=== PATIENT | male | born 1960 | race Caucasian/White ===

== ENCOUNTER → 2019-04-28 20:37 | Outpatient (CLI) | payer MEDICAID | END | disposition home or self-care (01) | LOC: D.LABREF 20:37 | PROVIDERS: ATTEND Orthopaedic Surgery | DX: M17.11 Unilateral primary osteoarthritis, right knee (principal) ==

== ENCOUNTER 2019-05-06 17:20 | Inpatient (IN) | payer MEDICAID ==
[~2019-05-06] VITALS: Ht 175.3 cm; Wt 109.1 kg
[2019-05-12 11:16] LABS: BASOPHILS 0.1 % (0-2); EOSINOPHILS 1.3 % (0-7); HEMATOCRIT 42.8 % (42.0-54.0); HEMOGLOBIN 14.5 g/dL (13.5-17.5); IMMATURE GRANULOCYTES 0.1 % (0-5); LYMPHOCYTES 41.2 % (15-50); MCH 31.5 pg (26.0-34.0); MCHC 33.9 g/dL (31.0-37.0); MONOCYTES 7.6 % (2-11); NEUTROPHILS 49.7 % (40-80); PLATELET COUNT 187 10x3/uL (130-400); RDW 13.5 % (11.5-14.5); WBC 6.9 10x3/uL (4.8-10.8)
[2019-05-12 11:17] LABS: APPEARANCE CLEAR (CLEAR); BILIRUBIN NEGATIVE (NEGATIVE); COLOR YELLOW (YELLOW); GLUCOSE NEGATIVE (NEGATIVE); KETONE NEGATIVE (NEGATIVE); NITRITE NEGATIVE (NEGATIVE); PROTEIN NEGATIVE (NEGATIVE); SPECIFIC GRAVITY 1.015 (1.005-1.020); UROBILINOGEN NORMAL (NORMAL)
[2019-05-12 11:21] LABS: APTT 26.3 SECONDS (22.8-39.4); INR 0.91 (0.85-1.17); PROTIME 12.2 SECONDS (11.6-15.0)
[2019-05-12 11:23] LABS: ANION GAP 11.2 mmol/L (8-16); CALCIUM 8.8 mg/dL (8.5-10.1); CARBON DIOXIDE 31.2 mmol/L (21.0-32.0); CREATININE - SERUM 1.2 mg/dL (0.6-1.3); POTASSIUM - SERUM 4.4 mmol/L (3.5-5.1)
[2019-05-17] VITALS (8 sets, daily range): BP systolic 116–149; BP diastolic 60–98; Ht 175.3 cm; Wt 109.1 kg
--- NOTE | 2019-05-17 14:31 | NUR ---
PREPPED WITH HIBACLENS AND ALCOHOL PRIOR TO CHLORAPREP. STERILE GOWNED AND GLOVED AND PREPPED WITH CHLORAPREP. THROUGH TRAFFIC KEPT TO MINIMUM. VANC AND TOBRA ADMINISTERED TO BACK FIELD STERILE GLOVED.
[2019-05-18 00:30] VITALS: BP 127/80
[2019-05-18 04:15] VITALS: BP 103/56
[2019-05-18 06:00] LABS: HEMATOCRIT 34.9 % (42.0-54.0); HEMOGLOBIN 11.5 g/dL (13.5-17.5); MCH 30.7 pg (26.0-34.0); MCV 93.3 fL (80.0-100.0); MEAN PLATELET VOLUME 10.7 fL (7.4-10.4); RBC 3.74 10x6/uL (4.20-6.10); RDW 13.5 % (11.5-14.5); WBC 12.8 10x3/uL (4.8-10.8)
--- NOTE | 2019-05-18 07:31 | NUR ---
I have reviewed this patient and I concur with the Shift Assessment completed by the Licensed Practical Nurse today this shift.
[2019-05-18 07:53] VITALS: BP 144/80
--- NOTE | 2019-05-18 08:12 | NUR ---
RESTING IN BED, NO DISTRESS NOTED, STATES THAT BLOCK IS STILL IN EFFECT, CPM IN PLACE, RUSSELL WARP TO RIGHT KNEE DRY
[2019-05-18 11:31] VITALS: BP 140/70
[2019-05-18 16:44] VITALS: BP 132/70
--- NOTE | 2019-05-18 18:19 | NUR ---
RESTING IN BED, NO DISTRESS NOTED, MEDICATED X1 TODAY FOR PAIN, DRESSING TO R KNEE DRY, DRY BLOOD NOTED THIS AM, NO NEW BLEEDING TODAY
[2019-05-18 19:30] VITALS: BP 137/80
--- NOTE | 2019-05-18 22:53 | NUR ---
REC'D. CHGE OF SHIFT WALKING ROUNDS IN CPM ACEWRAP DRSG. DRY AND INTACT TO RIGHT KNEE.FOOT PINK AND WARM PEDAL PULSE PRESENT WIGGLES TOES AND DORSIFLEXES STATES STILL LITTLE NUMB.DENIES CALF PAIN OR TENDERNESS ON DORSIFLEXION. WILL CONTINUE TO MONITOR FOR ANY CHGES. IN NEUROVASCULAR STATUS AND FOLLOW CURRENT PLAN OF CARE,
[2019-05-19 00:30] VITALS: BP 118/69
[2019-05-19 04:50] VITALS: BP 120/66
[2019-05-19 05:13] LABS: HEMATOCRIT 32.4 % (42.0-54.0); HEMOGLOBIN 10.7 g/dL (13.5-17.5); MCH 30.9 pg (26.0-34.0); MCV 93.6 fL (80.0-100.0); MEAN PLATELET VOLUME 10.7 fL (7.4-10.4); RBC 3.46 10x6/uL (4.20-6.10)
[2019-05-19 05:25] LABS: WBC 8.8 10x3/uL (4.8-10.8)
--- NOTE | 2019-05-19 06:58 | NUR ---
I have reviewed this patient and I concur with the Shift Assessment completed by the Licensed Practical Nurse today this shift.
[2019-05-19 08:20] VITALS: BP 130/67
[2019-05-19 17:53] VITALS: BP 129/66
[2019-05-19 18:08] VITALS: BP 117/63
--- NOTE | 2019-05-19 21:00 | NUR ---
A&O X 4. SUPINE IN BED. CPM NOT FUNCTIONING PROPERLY. PT STATES IT STOPPED WORKING. UNABLE TO MAKE WORK, CPM REMOVED. PT REPORTS PAIN OF 3-4/10. NO FURTHER NEEDS VOICED, WILL CONTINUE TO MONITOR.
[2019-05-19 21:05] VITALS: BP 172/89
[2019-05-20 01:49] VITALS: BP 160/70
--- NOTE | 2019-05-20 04:07 | NUR ---
I have reviewed this patient and I concur with the Shift Assessment completed by the Licensed Practical Nurse today this shift.
[2019-05-20 05:53] VITALS: BP 137/76
--- NOTE | 2019-05-20 08:00 | NUR ---
AWAKE AND ALERT. ORIENTED X3. NO C/O AT THIS TIME. CPM IN PLACE TO RIGHT KNEE. LUNGS ARE CLEAR BILATERALLY, NO COUGH NOTED. INSTRUCTED IN USE OF IS WA WITH RETURN DEMONSTRATION. SKIN IS INTACT WITHOUT REDNESS EXCEPT INCISION TO RIGHT KNEE WHICH HAS A DRY INTACT DRESSING IN PLACE. SL TO LEFT HAND PATENT WITHOUT REDNESS AT INSERTION SITE. FAMILY AT BEDSIDE. DENIES NEEDS.
[2019-05-20] MEDS ORDERED: PERCOCET 10-321 EAC1 PO (08:07)
[2019-05-20] MEDS ORDERED: ELIQUIS2.5 MG PO (08:08)
--- NOTE | 2019-05-20 09:51 | MORECARE ---
CASE MANAGEMENT DISCHARGE SUMMARY PATIENT: JC HUDDLESTON DOYLE UNIT: [id number] ADM DATE: 05/17/19 AGE: 59 : 60 SEX: M ROOM/BED: D.2210 AUTHOR: YOSSI KEEN PHYSICIAN: REFERRING PHYSICIAN: STEPH BUTLER MD DATE OF SERVICE: 05/20/19 Discharge Plan Patient Name: JC HUDDLESTON [facility] [facility] 1960 Planned Disposition: Home or Self Care Anticipated Discharge Date: Discharge Date: Expected LOS: Initial Reviewer: [email or web address] Initial Review Date: 05/17/2019 Generated: 05/20/19 10:51 am Patient Name: JC HUDDLESTON Page 97766 at 0951 All edits/amendments must be made on the electronic document DICTATION DATE: 05/20/19950 COOKEE: JERRY 05/20/19950 RPT#: [id number] DC DATE: STATUS: ADM IN [facility] [address] [place] [address] END OF REPORT
--- NOTE | 2019-05-20 10:00 | MORECARE ---
CASE MANAGEMENT DISCHARGE SUMMARY PATIENT: JC HUDDLESTON UNIT: [id number] ADM DATE: 05/17/19 AGE: 59 : 60 SEX: M ROOM/BED: D.2210 AUTHOR: OSMANI,DOC PHYSICIAN: REFERRING PHYSICIAN: STEPH BUTLER MD DATE OF SERVICE: 05/20/19 Discharge Plan Patient Name: JC HUDDLESTON Facility: [facility]:[place] : 1960 Planned Disposition: Home or Self Care Anticipated Discharge Date: Discharge Date: Expected LOS: Initial Reviewer: [email or web address] Initial Review Date: 05/17/2019 Generated: 05/20/19 10:59 am Comments DCP- Discharge Planning Updated by [email or web address]: Lucrecia Montana on 05/20/19 8:[address] Patient Name: JC HUDDLESTON Admission Status: Elective Accout number: [id number] Admission Date: 05-17-2019 : 1960 Admission Diagnosis: Attending: STEPH BUTLER Current LOS: 3 Anticipated DC Date: Planned Disposition: Home or Self Care [place] Insurance: [place] PR[employer]IONS [place] Discharge Planning Comments: CM met with patient to complete initial dc planning assessment. CM educated patient on the CM role and verbal consent given by patient to complete assessment. Patient lives at home with his family where he is independent with his care. At discharge patient plans to return home and feels this is a safe discharge. CM discussed availability of home health, rehab services, and medical equipment. He would like to do his OP PT at [facility]. I have called to set up his appointment and they will call me back. He has a walker, BSC and CPM at home that was set up by Dr Butler's office. Patient denied known discharge needs at this time. CM will continue to follow and will assist as needed with dc plans/needs. Quality Compliance Consultant: Lucrecia Montana DCPIA - Discharge Planning Initial Assessment Updated by [email or web address]: Lucrecia Montana on 05/20/19 9:52 am * Is the patient Alert and Oriented? Yes * How many steps to enter\exit or inside your home? * PCP DORI * Pharmacy [facility] [address] * Preadmission Environment Home with Family * ADLs Independent * Equipment Bedside Commode Walker * Other Equipment CPM * List name and contact numbers for known caregivers / representatives who currently or will assist patient after discharge: JEFF FORTUNE [phone] * Verbal permission to speak to the caregivers and representatives has been obtained from the patient. N/A * Community resources currently utilized None * Additional services required to return to the preadmission environment? Yes * Can the patient safely return to the preadmission environment? Yes * Has this patient been hospitalized within the prior 30 days at any hospital? No Last DP export: 05/20/19 8:51 a Patient Name: JC HUDDLESTON Page 26746 at 1000 All edits/amendments must be made on the electronic document DICTATION DATE: 05/20/19958 EXECUTIVE RELATIONS SPECIALIST: JERRY 05/20/19958 RPT#: [id number] DC DATE: STATUS: ADM IN [facility] [address] [place] [address] END OF REPORT
--- NOTE | 2019-05-20 10:00 | NUR ---
TEDS REMOVED AT THIS TIME.
[2019-05-20 10:06] VITALS: BP 159/63
--- NOTE | 2019-05-20 11:37 | MORECARE ---
CASE MANAGEMENT DISCHARGE SUMMARY PATIENT: JC HUDDLESTON UNIT: [id number] ADM DATE: 05/17/19 AGE: 59 : 60 SEX: M ROOM/BED: D.2210 AUTHOR: YOSSI KEEN PHYSICIAN: REFERRING PHYSICIAN: STEPH BUTLER MD DATE OF SERVICE: 05/20/19 Discharge Plan Patient Name: JC HUDDLESTON Facility: [facility]:[place] : 1960 Planned Disposition: Home or Self Care Anticipated Discharge Date: Discharge Date: Expected LOS: Initial Reviewer: [email or web address] Initial Review Date: 05/17/2019 Generated: 05/20/19 12:36 pm Comments DCP- Discharge Planning Updated by [id number]: Lucrecia Montana on 05/20/19 10:[address] OP PT APPOINTMENT MADE FOR Friday05/24/19 AT 9:30 FOR HIM TO ARRIVE AT 9:15 I SPOKE WITH PAYTON DCP- Discharge Planning Updated by [email or web address]: Lucrecia Montana on 05/20/19 8:[address] Patient Name: JC HUDDLESTON Admission Status: Elective Accout number: [id number] Admission Date: 05-17-2019 : 1960 Admission Diagnosis: Attending: STEPH BUTLER Current LOS: 3 Anticipated DC Date: Planned Disposition: Home or Self Care [place] Insurance: [place] PR[employer]IONS [place] Discharge Planning Comments: CM met with patient to complete initial dc planning assessment. CM educated patient on the CM role and verbal consent given by patient to complete assessment. Patient lives at home with his family where he is independent with his care. At discharge patient plans to return home and feels this is a safe discharge. CM discussed availability of home health, rehab services, and medical equipment. He would like to do his OP PT at [facility]. I have called to set up his appointment and they will call me back. He has a walker, BSC and CPM at home that was set up by Dr Butler's office. Patient denied known discharge needs at this time. CM will continue to follow and will assist as needed with dc plans/needs. Supervisor Of Officials: Lucrecia Montana DCPIA - Discharge Planning Initial Assessment Updated by [email or web address]: Lucrecia Montana on 05/20/19 9:52 am * Is the patient Alert and Oriented? Yes * How many steps to enter\exit or inside your home? * PCP DORI * Pharmacy [facility] * Preadmission Environment Home with Family * ADLs Independent * Equipment Bedside Commode Walker * Other Equipment CPM * List name and contact numbers for known caregivers / representatives who currently or will assist patient after discharge: JEFF FORTUNE [phone] * Verbal permission to speak to the caregivers and representatives has been obtained from the patient. N/A * Community resources currently utilized None * Additional services required to return to the preadmission environment? Yes * Can the patient safely return to the preadmission environment? Yes * Has this patient been hospitalized within the prior 30 days at any hospital? No Last DP export: 05/20/19 9:00 a Patient Name: JC HUDDLESTON Page 81047 at 1137 All edits/amendments must be made on the electronic document DICTATION DATE: 05/20/19 1136 STILL TENDER: JERRY 05/20/19 1136 RPT#: [id number] DC DATE: STATUS: ADM IN [facility] [address] [place] [address] END OF REPORT
--- NOTE | 2019-05-20 11:49 | OP ---
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 PROCEDURE: Revision total knee arthroplasty. SURGEON: Steph Butler MD HEALTH AND SAFETY COORDINATOR: Rafi Silva APN INTRAOPERATIVE COMPLICATIONS: None. SUMMARY OF PATHOLOGIC FINDINGS: The patient had severe arthritis with near complete overgrowth of the previously placed PFJ. The patellar component, which was in excellent condition and did not require revision. IMPLANTS USED: [place] triathlon total knee arthroplasty, press fit size 6 distal femur, size 6 tibial baseplate, and a size 13 polyethylene insert, again, press fit. ESTIMATED BLOOD LOSS: 250 cc. OPERATIVE SUMMARY IN DETAIL: After obtaining the appropriate preoperative orthopedic surgery consent as well as anesthetic consultation, evaluation, and clearance, the patient was brought to the operating room and placed on the operating table in supine position. After adequate general laryngeal mask airway was administered, tourniquet was placed on the proximal aspect of the right lower extremity. Right lower extremity was then prepped and draped in routine sterile fashion. At this point, the appropriate unique patient identifiers and timeout was taken and agreed upon by all in the OR. Leg was then elevated and exsanguinated, tourniquet was inflated to 350 mmHg. Routine midline incision was taken down. Paramedian arthrotomy was then utilized. Patella was everted and examined. Patellar component seemed to be in excellent overall condition. At this point, the patellofemoral joint arthroplasty was removed with no bone loss. Distal intramedullary guide hole was created for distal intramedullary guidance. Distal femoral cut was made. Attention was then turned to the proximal tibia after the appropriate resection of all soft tissues. Proximal tibia was completely exposed and intramedullary guide cutting was then utilized. The patient had severe varus arthritis, but I do think it was correctable without substantial need for augmentation. Trials corresponding to the above-mentioned implants were put into place and taken through range of motion and it was felt that the 13 was the most appropriate. A very small medial collateral release was utilized for balancing and again, the stable seem to be balanced in flexion and extension with good patellar tracking. Trial components were removed. The knee cavity was irrigated with pulsatile lavage. Bone ends were then dried and the final components were press fit into place. The knee was taken through range of motion and found to be stable in all planes. Having completed this, a gram of vancomycin and a gram of tobramycin was placed OPERATIVE REPORT [id number] JC HUDDLESTON in the knee. The paramedian arthrotomy was closed with #2 Ethibond by Rafi Silva including skin closure #1 Vicryl, 2-0 Vicryl and skin kirill. Sterile dressings were applied. Tourniquet was deflated. The patient was awakened and taken to recovery room in stable condition. All final needle and sponge counts were correct. TRANSINT:[id number] Voice Confirmation ID: [id number] DOCUMENT ID: [id number] CARRIE LORENZO, STEPH ESTEBAN at 1149 CC: [id number] DICTATION DATE: 05/18/19 0855 FIRST COOK: 05/18/19 1135 ADM IN [facility] [address] [place] [id number]
[2019-05-20 13:42] VITALS: BP 134/66
--- NOTE | 2019-05-20 15:38 | NUR ---
DISCHARGED TO HOME AMBULATORY WITH FAMILY. DISCHARGE INSTRUCTIONS GIVEN BOTH VERBALLY AND WRITTEN. ALL QUESTIONS ANSWERED. PATIENT VERBALIZED UNDERSTANDING OF SAME. SL TO LEFT WRIST D/C WITH CATHETER INTACT. NEEDED PRESCRIPTIONS ESCRIBED TO PHARMACY OF CHOICE. ALL BELONGINGS WITH PATIENT.
--- NOTE | 2019-05-22 15:50 | MORECARE ---
CASE MANAGEMENT DISCHARGE SUMMARY PATIENT: JC HUDDLESTON UNIT: [id number] ADM DATE: 05/17/19 AGE: 59 : 60 SEX: M ROOM/BED: D.2210 AUTHOR: YOSSI KEEN PHYSICIAN: REFERRING PHYSICIAN: STEPH BUTLER MD DATE OF SERVICE: 05/22/19 Discharge Plan Patient Name: JC HUDDLESTON Facility: [facility]:[place] : 1960 Planned Disposition: Home or Self Care Anticipated Discharge Date: Discharge Date: 05/20/2019 Expected LOS: Initial Reviewer: [email or web address] Initial Review Date: 05/17/2019 Generated: 05/22/19 4:50 pm Comments DCP- Discharge Planning Updated by [email or web address]: Lucrecia Montana on 05/20/19 10:[address] OP PT APPOINTMENT MADE FOR Friday05/24/19 AT 9:30 FOR HIM TO ARRIVE AT 9:15 I SPOKE WITH PAYTON DCP- Discharge Planning Updated by [email or web address]: Lucrecia Montana on 05/20/19 8:[address] Patient Name: JC HUDDLESTON Admission Status: Elective Accout number: [id number] Admission Date: 05-17-2019 : 1960 Admission Diagnosis: Attending: STEPH BUTLER Current LOS: 3 Anticipated DC Date: Planned Disposition: Home or Self Care Primary Insurance: [place] PRIVATE OPTIONS DEB[place] Discharge Planning Comments: CM met with patient to complete initial dc planning assessment. CM educated patient on the CM role and verbal consent given by patient to complete assessment. Patient lives at home with his family where he is independent with his care. At discharge patient plans to return home and feels this is a safe discharge. CM discussed availability of home health, rehab services, and medical equipment. He would like to do his OP PT at [facility]. I have called to set up his appointment and they will call me back. He has a walker, BSC and CPM at home that was set up by Dr Butler's office. Patient denied known discharge needs at this time. CM will continue to follow and will assist as needed with dc plans/needs. Camp Advisor: Lucrecia Montana DCPIA - Discharge Planning Initial Assessment Updated by [email or web address]: Lucrecia Montana on 05/20/19 9:52 am * Is the patient Alert and Oriented? Yes * How many steps to enter\exit or inside your home? * PCP DORI * Pharmacy [facility] * Preadmission Environment Home with Family * ADLs Independent * Equipment Bedside Commode Walker * Other Equipment CPM * List name and contact numbers for known caregivers / representatives who currently or will assist patient after discharge: JEFF FORTUNE [phone] * Verbal permission to speak to the caregivers and representatives has been obtained from the patient. N/A * Community resources currently utilized None * Additional services required to return to the preadmission environment? Yes * Can the patient safely return to the preadmission environment? Yes * Has this patient been hospitalized within the prior 30 days at any hospital? No Last DP export: 05/20/19 10:37 a Patient Name: JC HUDDLESTON Page 24180 at 1550 All edits/amendments must be made on the electronic document DICTATION DATE: 05/22/19 1550 DATA SECURITY CONSULTANT: JERRY 05/22/19 1550 RPT#: [id number] DC DATE:05/20/19 STATUS: DIS IN [facility] [address] [place] [address] END OF REPORT
== END 2019-05-20 15:40 | disposition home or self-care (01) | DRG 468 ==
LOC: D.SDCHOLD 05-12 10:00 → D.MS 05-17 09:50 → D.SDCHOLD 05-17 09:50 → D.MS 05-17 15:48
PROVIDERS: ADMIT Orthopaedic Surgery; ATTEND Orthopaedic Surgery
PROC: 0SPC0NZ Removal of Patellofemoral Synthetic Substitute from Right Knee Joint, Open Approach (ICD-10-PCS; 2019-05-17)
PROC: 0SRC0J9 Replacement of Right Knee Joint with Synthetic Substitute, Cemented, Open Approach (ICD-10-PCS; principal; 2019-05-17 11:45)
DX: T84.092A Other mechanical complication of internal right knee prosthesis, initial encounter (principal); M17.11 Unilateral primary osteoarthritis, right knee

== ENCOUNTER → 2019-06-30 22:04 | Outpatient (CLI) | payer MEDICAID ==
[2019-05-17 17:55] VITALS: BMI 35.5
[~2019-06-30 22:04] MED LIST: ELIQUIS2.5 MG PO; PERCOCET 10-321 EAC1 PO
== END | disposition home or self-care (01) ==
LOC: D.LABREF 22:04
PROVIDERS: ATTEND Orthopaedic Surgery
DX: M25.562 Pain in left knee (principal)

== ENCOUNTER 2019-07-26 13:47 | Inpatient (IN) | payer MEDICAID ==
[~2019-07-26] VITALS: Ht 175.3 cm; Wt 112.7 kg
--- NOTE | ~2019-07-26 | OP ---
PATIENT NAME: JC HUDDLESTON MEDICAL RECORD: [id number] :60 LOCATION:D.M3 D.1208 ADMISSION DATE:08/30/19 SURGEON: STEPH BUTLER MD DATE OF OPERATION: 08/30/2019 PREOPERATIVE DIAGNOSES: Severe degenerative arthritis of the left knee with previous patellofemoral joint arthroplasty. POSTOPERATIVE DIAGNOSES: Severe degenerative arthritis of the left knee with previous patellofemoral joint arthroplasty. PROCEDURE: Revision of left total knee arthroplasty. SURGEON: Steph Butler MD SAND CARRIER: LAURENCE Garcia INTRAOPERATIVE COMPLICATIONS: None. SUMMARY OF PATHOLOGIC FINDINGS: While the patient had had previous patellofemoral arthroplasty, the remainder of the joint had gone into severe degenerative changes. The patient's previously placed patella was in good condition. It was not replaced due to fear of fracture and it did not have substantial polyethylene wear. The main problem was the patient had severe medial and lateral joint line disease. IMPLANTS USED: [place] triathlon total knee arthroplasty system, size 6 distal femur, 6 tibial baseplate, 11-mm polyethylene insert. OPERATIVE SUMMARY IN DETAIL: After obtaining the appropriate preoperative orthopedic surgery consent as well as anesthetic consultation, evaluation and clearance, the patient was brought to the operating room and placed on the operating table in a supine position. After adequate general laryngeal mask airway was administered, the patient's left lower extremity was prepped and draped in routine sterile fashion. The leg was elevated, irrigated, tourniquet inflated to 350 mmHg. At this point, the appropriate unique patient identifiers were agreed upon by all for a timeout. Routine midline incision was taken down for paramedian arthrotomy. The patella was then subluxed laterally as it was not going to be everted given the patient's overall tightness. Severe arthritis lead to substantial soft tissue excision. The patellofemoral component was gently removed with minimal amount of bone loss. Having removed the old PFJ, intramedullary guide hole was created for distal femoral intramedullary guided cuts. Having completed this and removal of osteophytes, the entire proximal tibia was exposed with some degree of trepidation. Soft tissue excision was then followed by intramedullary guided placement. It is of note, after the proximal tibial baseplate was cut, a very large cyst was noted and for this reason the decision was made to proceed with a cemented total knee arthroplasty in this 59-year-old gentleman rather than cementless. Chamfer cuts were made on the proximal femur for a size 6. The appropriate trials were put into place, taken through range of motion, those are consistent with the final implants. The proximal tibia was prepared for a cemented stem baseplate given the large cyst that was formed. The patella as noted above was left in place. Final components were cemented into place. All excess cement was removed after it was allowed to harden. The knee was taken through range of motion and found to be stable in all planes. A gram of vancomycin and a gram of tobramycin were placed OPERATIVE REPORT [id number] JC HUDDLESTON directly into the wound. Paramedian arthrotomy was closed by LAURENCE Garcia with #2 Ethibond followed by #1 Vicryl, 2-0 Vicryl and skin kirill. Sterile dressings were applied. The patient was awakened and taken to the recovery room in stable condition. All final needle and sponge counts were correct. TRANSINT:[id number] Voice Confirmation ID: [id number] DOCUMENT ID: [id number] CARRIE LORENZO, STEPH ESTEBAN CC: [id number] DICTATION DATE: 09/02/19924 ONLINE AFFILIATE MARKETING MANAGER: 09/02/19 1623 DIS IN 09/01/19 [facility] [address] [place] [address]
[2019-08-27 09:14] LABS: HEMATOCRIT 40.6 % (42.0-54.0); HEMOGLOBIN 13.3 g/dL (13.5-17.5); LYMPHOCYTES 27.5 % (15-50); MCH 29.2 pg (26.0-34.0); MCHC 32.8 g/dL (31.0-37.0); MCV 89.2 fL (80.0-100.0); MEAN PLATELET VOLUME 9.6 fL (7.4-10.4); NEUTROPHILS 64.9 % (40-80); RBC 4.55 10x6/uL (4.20-6.10); RDW 13.3 % (11.5-14.5); WBC 7.3 10x3/uL (4.8-10.8)
[2019-08-27 09:15] LABS: PLATELET COUNT 186 10x3/uL (130-400)
[2019-08-27 09:23] LABS: ANION GAP 12.3 mmol/L (8-16); CALCIUM 8.5 mg/dL (8.5-10.1); CARBON DIOXIDE 25.7 mmol/L (21.0-32.0); CREATININE - SERUM 1.1 mg/dL (0.6-1.3)
[2019-08-27 09:46] LABS: APTT 24.7 SECONDS (22.8-39.4); INR 0.92 (0.85-1.17); PROTIME 12.3 SECONDS (11.6-15.0)
[2019-08-27 10:24] LABS: BILIRUBIN NEGATIVE (NEGATIVE); GLUCOSE NEGATIVE (NEGATIVE); KETONE NEGATIVE (NEGATIVE); NITRITE NEGATIVE (NEGATIVE); UROBILINOGEN NORMAL (NORMAL)
[2019-08-30] VITALS (11 sets, daily range): BP systolic 113–156; BP diastolic 62–101; Ht 175.3 cm; Wt 112.7 kg
--- NOTE | 2019-08-30 10:10 | NUR ---
RECEIVED TO ROOM 1208 VIA BED FROM PACU. A/O X3. DRESSING TO LEFT KNEE DRY AND INTACT. NO C/O PAIN OR DISCOMFORT AT THIS TIME. VSS.
--- NOTE | 2019-08-30 10:45 | NUR ---
VSS CONTINUE STABLE. TEDS AND PLEXI PULSE PLACED APPROPRIATELY. DENIES NEEDS. EATING ICE WITHOUT C/O PAIN OR NAUSEA.
--- NOTE | 2019-08-30 13:35 | MORECARE ---
CASE MANAGEMENT DISCHARGE SUMMARY PATIENT: JC HUDDLESTON UNIT: [id number] ADM DATE: 08/30/19 AGE: 59 : 60 SEX: M ROOM/BED: D.1208 AUTHOR: OSMANI,DOC PHYSICIAN: REFERRING PHYSICIAN: STEPH BUTLER MD DATE OF SERVICE: 08/30/19 Discharge Plan Patient Name: JC HUDDLESTON Facility: [facility]:[place] : 1960 Planned Disposition: Anticipated Discharge Date: Discharge Date: Expected LOS: Initial Reviewer: [email or web address] Initial Review Date: 08/30/2019 Generated: 08/30/19 2:35 pm DCP- Discharge Planning Updated by [email or web address]: Grace Otto on 08/30/19 12:[address] CM met with patient regarding DC needs/plans. Patient is A/O X3, drowsy. PCP: Dr. Moy. [facility] Patient lives independently with family. Equipment: RW, Emergency contact: Glen Wise (friend) [phone]. Patient gives permission to speak with family, if required. Denies use of Community services. Denies being hospitalized within past 30 days. CM will revisit patient when he is more awake regarding OP Therapy vs HHS. Transportation upon DC will Glen Wise. CM will continue to follow and assist PRN. DCPIA - Discharge Planning Initial Assessment Updated by [email or web address]: Grace Otto on 08/30/19 1:34 pm * Is the patient Alert and Oriented? Yes * How many steps to enter\exit or inside your home? * PCP Dr. Moy * [facility] * Preadmission Environment Home with Family * ADLs Independent * Equipment Walker * Other Equipment CPM * List name and contact numbers for known caregivers / representatives who currently or will assist patient after discharge: Glen Rojas (friend) [phone] * Verbal permission to speak to the caregivers and representatives has been obtained from the patient. Yes * Community resources currently utilized None * Please name any agencies selected above. [facility] OP Therapy * Additional services required to return to the preadmission environment? Yes * Can the patient safely return to the preadmission environment? Yes * Has this patient been hospitalized within the prior 30 days at any hospital? No Patient Name: JC HUDDLESTON Page 37236 at 1335 All edits/amendments must be made on the electronic document DICTATION DATE: 08/30/191334 AIR CONDITIONING ENGINEER: JERRY 08/30/191334 RPT#: [id number] DC DATE: STATUS: ADM IN [facility] [address] [place] [address] END OF REPORT
--- NOTE | 2019-08-30 13:45 | MORECARE ---
CASE MANAGEMENT DISCHARGE SUMMARY PATIENT: JC HUDDLESTON UNIT: [id number] ADM DATE: 08/30/19 AGE: 59 : 60 SEX: M ROOM/BED: D.1208 AUTHOR: OSMANI,DOC PHYSICIAN: REFERRING PHYSICIAN: STEPH BUTLER MD DATE OF SERVICE: 08/30/19 Discharge Plan Patient Name: JC HUDDLESTON Facility: [facility]:[place] : 1960 Planned Disposition: Anticipated Discharge Date: Discharge Date: Expected LOS: Initial Reviewer: [email or web address] Initial Review Date: 08/30/2019 Generated: 08/30/19 2:44 pm DCP- Discharge Planning Updated by [email or web address]: Grace Otto on 08/30/19 12:[address] CM met with patient regarding DC needs/plans. Patient is A/O X3, drowsy. PCP: Dr. Moy. [facility] Patient lives independently with family. Equipment: RW, Emergency contact: Glen Wise (friend) [phone]. Patient gives permission to speak with family, if required. Denies use of Community services. Denies being hospitalized within past 30 days. CM will revisit patient when he is more awake regarding OP Therapy vs HHS. Transportation upon DC will Glen Wise. CM will continue to follow and assist PRN. DCPIA - Discharge Planning Initial Assessment Updated by [email or web address]: Grace Otto on 08/30/19 1:34 pm * Is the patient Alert and Oriented? Yes * How many steps to enter\exit or inside your home? * PCP Dr. Moy * [facility] [address] * Preadmission Environment Home with Family * ADLs Independent * Equipment Walker * Other Equipment CPM * List name and contact numbers for known caregivers / representatives who currently or will assist patient after discharge: Glen Rojas (friend) [phone] * Verbal permission to speak to the caregivers and representatives has been obtained from the patient. Yes * Community resources currently utilized None * Please name any agencies selected above. [facility] OP Therapy * Additional services required to return to the preadmission environment? Yes * Can the patient safely return to the preadmission environment? Yes * Has this patient been hospitalized within the prior 30 days at any hospital? No Last DP export: 08/30/19 12:35 p Patient Name: JC HUDDLESTON Page 48714 at 1345 All edits/amendments must be made on the electronic document DICTATION DATE: 08/30/191343 MASTER BLACK BELT: JERRY 08/30/191343 RPT#: [id number] DC DATE: STATUS: ADM IN [facility] [address] [place] [address] END OF REPORT
--- NOTE | 2019-08-30 17:58 | MORECARE ---
CASE MANAGEMENT DISCHARGE SUMMARY PATIENT: JC HUDDLESTON UNIT: [id number] ADM DATE: 08/30/19 AGE: 59 : 60 SEX: M ROOM/BED: D.1208 AUTHOR: OSMANI,DOC PHYSICIAN: REFERRING PHYSICIAN: STEPH BUTLER MD DATE OF SERVICE: 08/30/19 Discharge Plan Patient Name: JC HUDDLESTON Facility: [facility]:[place] : 1960 Planned Disposition: Anticipated Discharge Date: Discharge Date: Expected LOS: Initial Reviewer: [email or web address] Initial Review Date: 08/30/2019 Generated: 08/30/19 6:57 pm DCP- Discharge Planning Updated by [email or web address]: Grace Otto on 08/30/19 12:[address] CM met with patient regarding DC needs/plans. Patient is A/O X3, drowsy. PCP: Dr. Moy. [facility] Patient lives independently with family. Equipment: RW, Emergency contact: Glen Wise (friend) [phone]. Patient gives permission to speak with family, if required. Denies use of Community services. Denies being hospitalized within past 30 days. CM will revisit patient when he is more awake regarding OP Therapy vs HHS. Transportation upon DC will Glen Wise. CM will continue to follow and assist PRN. DCPIA - Discharge Planning Initial Assessment Updated by [email or web address]: Grace Otto on 08/30/19 1:34 pm * Is the patient Alert and Oriented? Yes * How many steps to enter\exit or inside your home? * PCP Dr. Moy * [facility] * Preadmission Environment Home with Family * ADLs Independent * Equipment Walker * Other Equipment CPM * List name and contact numbers for known caregivers / representatives who currently or will assist patient after discharge: Glen Rojas (friend) [phone] * Verbal permission to speak to the caregivers and representatives has been obtained from the patient. Yes * Community resources currently utilized None * Please name any agencies selected above. [facility] OP Therapy * Additional services required to return to the preadmission environment? Yes * Can the patient safely return to the preadmission environment? Yes * Has this patient been hospitalized within the prior 30 days at any hospital? No Last DP export: 08/30/19 12:45 p Patient Name: JC HUDDLESTON Page [id number] at 1758 All edits/amendments must be made on the electronic document DICTATION DATE: 08/30/191756 BOX CHIPPER: JERRY 08/30/191756 RPT#: [id number] DC DATE: STATUS: ADM IN [facility] [address] [place] [address] END OF REPORT
--- NOTE | 2019-08-30 19:05 | NUR ---
ATE ALL OF SUPPER. NO CHANGES NOTED. ON CPM SINCE 1799. DENIES NEEDS.
--- NOTE | 2019-08-30 19:10 | NUR ---
PATIENT RESTING IN BED WITH NO S/S OF DISTRESS. PATIENT DENIES PAIN AT THIS TIME. BROUGHT PATIENT ICECREAM PER HIS REQUEST. BED IN LOWEST POSITION AND CALL LIGHT WITHIN REACH. ENCOURAGED THE PATIENT TO CALL IF HE HAS NEEDS. WILL CONTINUE TO MONITOR.
[2019-08-31 00:09] VITALS: BP 132/56
[2019-08-31 04:41] VITALS: BP 134/78
--- NOTE | 2019-08-31 04:45 | NUR ---
PLACED PATIENT ON CPM TO LEFT KNEE
--- NOTE | 2019-08-31 07:00 | NUR ---
RECEIVED BEDSIDE REPORT ON PATIENT AND ASSUMED CARE. PATEINT ALERT AND ORIENTED X 4, LAYING IN BED WITH LEFT LEG IN CPM. BBS - CLEAR AND EQUAL, RR - 18, NONLABORED, SPO2 - 98% ON RA. HR - 66, REGULAR, RATE. DISTAL DP PULSE ON LEFT FOOT IS +2, STATES NUMBNESS TO LEFT LEG IS STILL PRESENT BUT RESOLVING. VSS. IV 20 GA TO RIGHT HAND W/O S/S OF INFILTRATION, 1/2 NS AT 100 ML/HR. EMPTIED 250 ML OF CLEAR YELLOW UOP FROM URINAL. STATES PAIN IS WELL CONTROLLED. NO NEEDS AT THIS TIME. HEAD TO TOE ASSESSMENT COMPLETED.
[2019-08-31 07:04] LABS: HEMATOCRIT 34.9 % (42.0-54.0); HEMOGLOBIN 11.2 g/dL (13.5-17.5); MCHC 32.1 g/dL (31.0-37.0); MCV 90.4 fL (80.0-100.0); MEAN PLATELET VOLUME 10.7 fL (7.4-10.4); RBC 3.86 10x6/uL (4.20-6.10); RDW 13.7 % (11.5-14.5); WBC 9.9 10x3/uL (4.8-10.8)
[2019-08-31 07:21] VITALS: BP 145/83
--- NOTE | 2019-08-31 07:36 | NUR ---
PATIENT GIVEN BREAKFAST TRAY. NO NEEDS AT THIS TIME.
--- NOTE | 2019-08-31 07:49 | NUR ---
PATIENT ATE 100% OF BREAKFAST. NO NEEDS AT THIS TIME. CPM MACHINE REMOVED.
--- NOTE | 2019-08-31 08:10 | NUR ---
MAG TAYLOR AT ROOM UPDATED AND EXAMINES PATIENT. IV NSL.
--- NOTE | 2019-08-31 09:22 | NUR ---
PATIENT UP TO BEDSIDE CHAIR WITH PT AND STANDBY ASSIST. TOLERATES WELL.
[2019-08-31 12:07] VITALS: BP 133/69
--- NOTE | 2019-08-31 12:36 | NUR ---
PATIENT SITTING UP IN BEDSIDE CHAIR, GIVEN LUNCH TRAY. NO NEEDS AT THIS TIME.
--- NOTE | 2019-08-31 12:43 | MORECARE ---
CASE MANAGEMENT DISCHARGE SUMMARY PATIENT: JC HUDDLESTON DOYLE UNIT: [id number] ADM DATE: 08/30/19 AGE: 59 : 60 SEX: M ROOM/BED: D.1208 AUTHOR: OSMANI,DOC PHYSICIAN: REFERRING PHYSICIAN: STEPH BUTLER MD DATE OF SERVICE: 08/31/19 Discharge Plan Patient Name: JC HUDDLESTON Facility: [facility]:[place] : 1960 Planned Disposition: Anticipated Discharge Date: Discharge Date: Expected LOS: Initial Reviewer: [email or web address] Initial Review Date: 08/30/2019 Generated: 08/31/19 1:43 pm Comments DCP- Discharge Planning Updated by [email or web address]: Grace Otto on 08/31/19 11:[address] CM notified Baron of OP Therapy with [facility]. DCP- Discharge Planning Updated by [email or web address]: Grace Otto on 08/30/19 12:[address] CM met with patient regarding DC needs/plans. Patient is A/O X3, drowsy. PCP: Dr. Moy. Pharmacy: [facility]. Patient lives independently with family. Equipment: RW, Emergency contact: Glen Wise (friend) [phone]. Patient gives permission to speak with family, if required. Denies use of Community services. Denies being hospitalized within past 30 days. CM will revisit patient when he is more awake regarding OP Therapy vs HHS. Transportation upon DC will Glen Wise. CM will continue to follow and assist PRN. DCPIA - Discharge Planning Initial Assessment Updated by [email or web address]: Grace Otto on 08/30/19 1:34 pm * Is the patient Alert and Oriented? Yes * How many steps to enter\exit or inside your home? * PCP Dr. Moy * Pharmacy [facility] [address] * Preadmission Environment Home with Family * ADLs Independent * Equipment Walker * Other Equipment CPM * List name and contact numbers for known caregivers / representatives who currently or will assist patient after discharge: Glen Rojas (friend) [phone] * Verbal permission to speak to the caregivers and representatives has been obtained from the patient. Yes * Community resources currently utilized None * Please name any agencies selected above. [facility] OP Therapy * Additional services required to return to the preadmission environment? Yes * Can the patient safely return to the preadmission environment? Yes * Has this patient been hospitalized within the prior 30 days at any hospital? No Last DP export: 08/30/19 4:58 p Patient Name: JC HUDDLESTON Page 27620 at 1243 All edits/amendments must be made on the electronic document DICTATION DATE: 08/31/191242 LABORATORY SPECIALIST: JERRY 08/31/19 1243 RPT#: [id number] DC DATE: STATUS: ADM IN [facility] [address] [place] [address] END OF REPORT
--- NOTE | 2019-08-31 13:00 | NUR ---
PATIENT ATE 100% OF LUNCH TRAY, C/0 PAIN RATES 5/10 TO LEFT KNEE, STATES LEFT LEG IS NO LONGER NUMB BUT HAS A BURNING SENSATION.
--- NOTE | 2019-08-31 13:43 | MORECARE ---
CASE MANAGEMENT DISCHARGE SUMMARY PATIENT: JC HUDDLESTON DOYLE UNIT: [id number] ADM DATE: 08/30/19 AGE: 59 : 60 SEX: M ROOM/BED: D.1208 AUTHOR: OMSANI,DOC PHYSICIAN: REFERRING PHYSICIAN: STEPH BUTLER MD DATE OF SERVICE: 08/31/19 Discharge Plan Patient Name: JC HUDDLESTON Facility: [facility]:[place] : 1960 Planned Disposition: Anticipated Discharge Date: Discharge Date: Expected LOS: Initial Reviewer: [email or web address] Initial Review Date: 08/30/2019 Generated: 08/31/19 2:42 pm Comments DCP- Discharge Planning Updated by [email or web address]: Grace Otto on 08/31/19 11:[address] CM notified Baron of OP Therapy with [facility]. DCP- Discharge Planning Updated by [email or web address]: Grace Otto on 08/30/19 12:[address] CM met with patient regarding DC needs/plans. Patient is A/O X3, drowsy. PCP: Dr. Moy. Pharmacy: [facility]. Patient lives independently with family. Equipment: RW, Emergency contact: Glen Wise (friend) [phone]. Patient gives permission to speak with family, if required. Denies use of Community services. Denies being hospitalized within past 30 days. CM will revisit patient when he is more awake regarding OP Therapy vs HHS. Transportation upon DC will Glen Wise. CM will continue to follow and assist PRN. DCPIA - Discharge Planning Initial Assessment Updated by [email or web address]: Grace Otto on 08/30/19 1:34 pm * Is the patient Alert and Oriented? Yes * How many steps to enter\exit or inside your home? * PCP Dr. Moy * Pharmacy [facility] [address] * Preadmission Environment Home with Family * ADLs Independent * Equipment Walker * Other Equipment CPM * List name and contact numbers for known caregivers / representatives who currently or will assist patient after discharge: Glen Rojas (friend) [phone] * Verbal permission to speak to the caregivers and representatives has been obtained from the patient. Yes * Community resources currently utilized None * Please name any agencies selected above. [facility] OP Therapy * Additional services required to return to the preadmission environment? Yes * Can the patient safely return to the preadmission environment? Yes * Has this patient been hospitalized within the prior 30 days at any hospital? No External Providers External Provider: OTHER-OTHER Next Contact Date: Service Request Date: Service Type: Resolution: Reviewer: Comments: Last DP export: 08/31/19 11:43 a Patient Name: JC HUDDLESTON Page 44139 at 1343 All edits/amendments must be made on the electronic document DICTATION DATE: 08/31/19 1342 PRISONER CLASSIFICATION INTERVIEWER: JERRY 08/31/19 1342 RPT#: [id number] DC DATE: STATUS: ADM IN [facility] [address] [place] [address] END OF REPORT
--- NOTE | 2019-08-31 14:15 | NUR ---
PATIENT WALKED IN [place] WITH PT AND WALKER, BACK TO BED POST WALK.
--- NOTE | 2019-08-31 14:15 | MORECARE ---
CASE MANAGEMENT DISCHARGE SUMMARY PATIENT: JC HUDDLESTON DOYLE UNIT: [id number] ADM DATE: 08/30/19 AGE: 59 : 60 SEX: M ROOM/BED: D.1208 AUTHOR: OSMANI,DOC PHYSICIAN: REFERRING PHYSICIAN: STEPH BUTLER MD DATE OF SERVICE: 08/31/19 Discharge Plan Patient Name: JC HUDDLESTON Facility: [facility]:[place] : 1960 Planned Disposition: Anticipated Discharge Date: Discharge Date: Expected LOS: Initial Reviewer: [email or web address] Initial Review Date: 08/30/2019 Generated: 08/31/19 3:14 pm Comments DCP- Discharge Planning Updated by [email or web address]: Grace Otto on 08/31/19 1:[address] CM notified Baron of OP Therapy with [facility]. Faxed required information to [facility] Therapy. DCP- Discharge Planning Updated by [email or web address]: Grace Otto on 08/30/19 12:[address] CM met with patient regarding DC needs/plans. Patient is A/O X3, drowsy. PCP: Dr. Moy. Pharmacy: [facility]. Patient lives independently with family. Equipment: RW, Emergency contact: Glen Wise (friend) [phone]. Patient gives permission to speak with family, if required. Denies use of Community services. Denies being hospitalized within past 30 days. CM will revisit patient when he is more awake regarding OP Therapy vs HHS. Transportation upon DC will Glen Wise. CM will continue to follow and assist PRN. DCPIA - Discharge Planning Initial Assessment Updated by [email or web address]: Grace Otto on 08/30/19 1:34 pm * Is the patient Alert and Oriented? Yes * How many steps to enter\exit or inside your home? * PCP Dr. Moy * [facility] [address] * Preadmission Environment Home with Family * ADLs Independent * Equipment Walker * Other Equipment CPM * List name and contact numbers for known caregivers / representatives who currently or will assist patient after discharge: Glen Rojas (friend) [phone] * Verbal permission to speak to the caregivers and representatives has been obtained from the patient. Yes * Community resources currently utilized None * Please name any agencies selected above. [facility] OP Therapy * Additional services required to return to the preadmission environment? Yes * Can the patient safely return to the preadmission environment? Yes * Has this patient been hospitalized within the prior 30 days at any hospital? No Last DP export: 08/31/19 12:43 p Patient Name: JC HUDDLESTON Page 49667 at 1415 All edits/amendments must be made on the electronic document DICTATION DATE: 08/31/191413 ELECTRICAL INSTALLER: JERRY 08/31/191413 RPT#: [id number] DC DATE: STATUS: ADM IN [facility] [address] [place] [address] END OF REPORT
--- NOTE | 2019-08-31 15:18 | NUR ---
PATIENT SITTING UP IN BEDSIDE CHAIR, NO NEEDS AT THIS TIME. VOIDS 200 ML CLEAR YELLOW UOP.
[2019-08-31 15:47] VITALS: BP 143/82
--- NOTE | 2019-08-31 16:25 | MORECARE ---
CASE MANAGEMENT DISCHARGE SUMMARY PATIENT: JC HUDDLESTON DOYLE UNIT: [id number] ADM DATE: 08/30/19 AGE: 59 : 60 SEX: M ROOM/BED: D.1208 AUTHOR: OSMANI,DOC PHYSICIAN: REFERRING PHYSICIAN: STEPH BUTLER MD DATE OF SERVICE: 08/31/19 Discharge Plan Patient Name: JC HUDDLESTON Facility: [facility]:[place] : 1960 Planned Disposition: Outpatient PT\OT Anticipated Discharge Date: 09/02/19 Discharge Date: Expected LOS: 3 Initial Reviewer: [email or web address] Initial Review Date: 08/30/2019 Generated: 08/31/19 5:25 pm DCP- Discharge Planning Updated by [email or web address]: Grace Otto on 08/31/19 1:[address] CM notified Baron of OP Therapy with [facility]. Faxed required information to [facility] Therapy. DCP- Discharge Planning Updated by [email or web address]: Grace Otto on 08/30/19 12:[address] CM met with patient regarding DC needs/plans. Patient is A/O X3, drowsy. PCP: Dr. Moy. [facility] Patient lives independently with family. Equipment: RW, Emergency contact: Glen Wise (friend) [phone]. Patient gives permission to speak with family, if required. Denies use of Community services. Denies being hospitalized within past 30 days. CM will revisit patient when he is more awake regarding OP Therapy vs HHS. Transportation upon DC will Glen Wise. CM will continue to follow and assist PRN. DCPIA - Discharge Planning Initial Assessment Updated by [email or web address]: Grace Otto on 08/30/19 1:34 pm * Is the patient Alert and Oriented? Yes * How many steps to enter\exit or inside your home? * PCP Dr. Moy * [facility] [address] * Preadmission Environment Home with Family * ADLs Independent * Equipment Walker * Other Equipment CPM * List name and contact numbers for known caregivers / representatives who currently or will assist patient after discharge: Glen Rojas (friend) [phone] * Verbal permission to speak to the caregivers and representatives has been obtained from the patient. Yes * Community resources currently utilized None * Please name any agencies selected above. [facility] OP Therapy * Additional services required to return to the preadmission environment? Yes * Can the patient safely return to the preadmission environment? Yes * Has this patient been hospitalized within the prior 30 days at any hospital? No Last DP export: 08/31/19 1:15 p Patient Name: JC HUDDLESTON Page 28863 at 1625 All edits/amendments must be made on the electronic document DICTATION DATE: 08/31/19 162 FOREST PATHOLOGY TEACHER: JERRY 08/31/19 1625 RPT#: [id number] DC DATE: STATUS: ADM IN [facility] [address] [place] [address] END OF REPORT
--- NOTE | 2019-08-31 16:53 | NUR ---
PATIENT UP IN BEDSIDE CHAIR, GIVEN DINNER TRAY. NO NEEDS AT THIS TIME.
--- NOTE | 2019-08-31 17:03 | MORECARE ---
CASE MANAGEMENT DISCHARGE SUMMARY PATIENT: JC HUDDLESTON DOYLE UNIT: [id number] ADM DATE: 08/30/19 AGE: 59 : 60 SEX: M ROOM/BED: D.1208 AUTHOR: OSMANI,DOC PHYSICIAN: REFERRING PHYSICIAN: STEPH BUTLER MD DATE OF SERVICE: 08/31/19 Discharge Plan Patient Name: JC HUDDLESTON Facility: [facility]:[place] : 1960 Planned Disposition: Outpatient PT\OT Anticipated Discharge Date: 09/02/19 Discharge Date: Expected LOS: 3 Initial Reviewer: [email or web address] Initial Review Date: 08/30/2019 Generated: 08/31/19 6:02 pm DCP- Discharge Planning Updated by [email or web address]: Grace Otto on 08/31/19 1:[address] CM notified Baron of OP Therapy with [facility]. Faxed required information to [facility] Therapy. DCP- Discharge Planning Updated by [email or web address]: Grace Otto on 08/30/19 12:[address] CM met with patient regarding DC needs/plans. Patient is A/O X3, drowsy. PCP: Dr. Moy. [facility] Patient lives independently with family. Equipment: RW, Emergency contact: Glen Wise (friend) [phone]. Patient gives permission to speak with family, if required. Denies use of Community services. Denies being hospitalized within past 30 days. CM will revisit patient when he is more awake regarding OP Therapy vs HHS. Transportation upon DC will Glen Wise. CM will continue to follow and assist PRN. DCPIA - Discharge Planning Initial Assessment Updated by [email or web address]: Grace Otto on 08/30/19 1:34 pm * Is the patient Alert and Oriented? Yes * How many steps to enter\exit or inside your home? * PCP Dr. Moy * [facility] [address] * Preadmission Environment Home with Family * ADLs Independent * Equipment Walker * Other Equipment CPM * List name and contact numbers for known caregivers / representatives who currently or will assist patient after discharge: Glen Rojas (friend) [phone] * Verbal permission to speak to the caregivers and representatives has been obtained from the patient. Yes * Community resources currently utilized None * Please name any agencies selected above. [facility] OP Therapy * Additional services required to return to the preadmission environment? Yes * Can the patient safely return to the preadmission environment? Yes * Has this patient been hospitalized within the prior 30 days at any hospital? No Last DP export: 08/31/19 3:25 p Patient Name: CJ HUDDLESTON Page [id number] at 1703 All edits/amendments must be made on the electronic document DICTATION DATE: 08/31/191701 MEAT LUGGER: JERRY 08/31/191701 RPT#: [id number] DC DATE: STATUS: ADM IN [facility] [address] [place] [address] END OF REPORT
--- NOTE | 2019-08-31 17:46 | NUR ---
PATIENT ASSISTED BACK TO BED, TOLERATED WELL, CPM MACHINE STARTED.
--- NOTE | 2019-08-31 18:03 | NUR ---
PATIENT STATES FEELING BETTER RATES PAIN 2/10.
--- NOTE | 2019-08-31 19:50 | NUR ---
PATIENT RESTING IN BED WITH NO S/S OF DISTRESS. PATIENT DENIES NEEDS AT THIS TIME. BED IN LOWEST POSITION AND CALL LIGHT WITHIN REACH. ENCOURAGED THE PATIENT TO CALL IF HE HAS NEEDS. WILL CONTINUE TO MONITOR.
[2019-08-31 21:34] VITALS: BP 149/80
[2019-09-01 03:51] VITALS: BP 137/79
--- NOTE | 2019-09-01 04:00 | NUR ---
PLACED PATIENT ON CPM TO LEFT KNEE
[2019-09-01 06:28] LABS: HEMATOCRIT 35.9 % (42.0-54.0); HEMOGLOBIN 11.1 g/dL (13.5-17.5); MCH 29.1 pg (26.0-34.0); MCHC 30.9 g/dL (31.0-37.0); MEAN PLATELET VOLUME 10.2 fL (7.4-10.4); RBC 3.81 10x6/uL (4.20-6.10); RDW 14.5 % (11.5-14.5)
[2019-09-01 06:38] LABS: MCV 94.2 fL (80.0-100.0)
[2019-09-01 07:37] VITALS: BP 165/90
--- NOTE | 2019-09-01 08:35 | NUR ---
PT ALERT X 4. BREATH SOUNDS CLEAR BILAT. IV TO RIGHT HAND, SALINE LOCKED. DRESSING TO LEFT KNEE CDI. SCD'S IN USE, KODY ALVARES ON. PT REPORTING PAIN OF 5/10, MEDICATED PER ORDERS. NO OTHER NEEDS AT THIS TIME.
[2019-09-01] MEDS ORDERED: PERCOCET 10-321 EAC1 PO (09:06)
[2019-09-01] MEDS ORDERED: ELIQUIS2.5 MG PO (09:06)
--- NOTE | 2019-09-01 14:05 | NUR ---
DISCHARGE PAPERWORK SIGNED, ALL QUESTIONS ANSWERED. IV TO RIGHT HAND DC'D, TIP INTACT. ESCORTED OUT VIA WHEELCHAIR.
--- NOTE | 2019-09-01 16:16 | MORECARE ---
CASE MANAGEMENT DISCHARGE SUMMARY PATIENT: JC HUDDLESTON DOYLE UNIT: [id number] ADM DATE: 08/30/19 AGE: 59 : 60 SEX: M ROOM/BED: D.1208 AUTHOR: OSMANI,DOC PHYSICIAN: REFERRING PHYSICIAN: STEPH BUTLER MD DATE OF SERVICE: 09/01/19 Discharge Plan Patient Name: JC HUDDLESTON Facility: [facility]:[place] : 1960 Planned Disposition: Outpatient PT\OT Anticipated Discharge Date: 09/01/19 Discharge Date: 09/01/2019 Expected LOS: 2 Initial Reviewer: [email or web address] Initial Review Date: 08/30/2019 Generated: 09/01/19 5:15 pm DCP- Discharge Planning Updated by [email or web address]: Grace Otto on 08/31/19 1:[address] CM notified Baron of OP Therapy with [facility]. Faxed required information to [facility] Therapy. DCP- Discharge Planning Updated by [email or web address]: Grace Otto on 08/30/19 12:[address] CM met with patient regarding DC needs/plans. Patient is A/O X3, drowsy. PCP: Dr. Moy. [facility] Patient lives independently with family. Equipment: RW, Emergency contact: Glen Wise (friend) [phone]. Patient gives permission to speak with family, if required. Denies use of Community services. Denies being hospitalized within past 30 days. CM will revisit patient when he is more awake regarding OP Therapy vs HHS. Transportation upon DC will Glen Wise. CM will continue to follow and assist PRN. DCPIA - Discharge Planning Initial Assessment Updated by [email or web address]: Grace Otto on 08/30/19 1:34 pm * Is the patient Alert and Oriented? Yes * How many steps to enter\exit or inside your home? * P[facility] Dr[facility] Moy * [facility] * Preadmission Environment Home with Family * ADLs Independent * Equipment Walker * Other Equipment CPM * List name and contact numbers for known caregivers / representatives who currently or will assist patient after discharge: Glen Rojas (friend) [phone] * Verbal permission to speak to the caregivers and representatives has been obtained from the patient. Yes * Community resources currently utilized None * Please name any agencies selected above. [facility] OP Therapy * Additional services required to return to the preadmission environment? Yes * Can the patient safely return to the preadmission environment? Yes * Has this patient been hospitalized within the prior 30 days at any hospital? No Last DP export: 08/31/19 4:03 p Patient Name: JC HUDDLESTON Page [id number] at 1616 All edits/amendments must be made on the electronic document DICTATION DATE: 09/01/191614 SPINNING MACHINE TENDER: JERRY 09/01/19 1615 RPT#: [id number] DC DATE:09/01/19 STATUS: DIS IN [facility] [address] [place] [address] END OF REPORT
--- NOTE | 2019-09-01 17:23 | MORECARE ---
CASE MANAGEMENT DISCHARGE SUMMARY PATIENT: JC HUDDLESTON DOYLE UNIT: [id number] ADM DATE: 08/30/19 AGE: 59 : 60 SEX: M ROOM/BED: D.1208 AUTHOR: OSMANI,DOC PHYSICIAN: REFERRING PHYSICIAN: STEPH BUTLER MD DATE OF SERVICE: 09/01/19 Discharge Plan Patient Name: JC HUDDLESTON Facility: [facility]:[place] : 1960 Planned Disposition: Outpatient PT\OT Anticipated Discharge Date: 09/01/19 Discharge Date: 09/01/2019 Expected LOS: 2 Initial Reviewer: [email or web address] Initial Review Date: 08/30/2019 Generated: 09/01/19 6:22 pm DCP- Discharge Planning Updated by [email or web address]: Grace Otto on 08/31/19 1:[address] CM notified Baron of OP Therapy with [facility]. Faxed required information to [facility] Therapy. DCP- Discharge Planning Updated by [email or web address]: Grace Otto on 08/30/19 12:[address] CM met with patient regarding DC needs/plans. Patient is A/O X3, drowsy. PCP: Dr. Moy. [facility] Patient lives independently with family. Equipment: RW, Emergency contact: Glen Wise (friend) [phone]. Patient gives permission to speak with family, if required. Denies use of Community services. Denies being hospitalized within past 30 days. CM will revisit patient when he is more awake regarding OP Therapy vs HHS. Transportation upon DC will Glen Wise. CM will continue to follow and assist PRN. DCPIA - Discharge Planning Initial Assessment Updated by [email or web address]: Grace Otto on 08/30/19 1:34 pm * Is the patient Alert and Oriented? Yes * How many steps to enter\exit or inside your home? * P[facility] Dr. Moy * [facility] * Preadmission Environment Home with Family * ADLs Independent * Equipment Walker * Other Equipment CPM * List name and contact numbers for known caregivers / representatives who currently or will assist patient after discharge: Glen Rojas (friend) [phone] * Verbal permission to speak to the caregivers and representatives has been obtained from the patient. Yes * Community resources currently utilized None * Please name any agencies selected above. [facility] OP Therapy * Additional services required to return to the preadmission environment? Yes * Can the patient safely return to the preadmission environment? Yes * Has this patient been hospitalized within the prior 30 days at any hospital? No Last DP export: 09/01/19 3:16 p Patient Name: JC HUDDLESTON Page [id number] at 1723 All edits/amendments must be made on the electronic document DICTATION DATE: 09/01/191721 COMMODITY TRADER: JERRY 09/01/191721 RPT#: [id number] DC DATE:09/01/19 STATUS: DIS IN [facility] [address] [place] [address] END OF REPORT
== END 2019-09-01 14:06 | disposition home or self-care (01) | DRG 468 ==
LOC: D.SDCHOLD 08-30 07:30 → D.M3 08-30 09:32
PROVIDERS: ADMIT Orthopaedic Surgery; ATTEND Orthopaedic Surgery
PROC: 0SRD0JZ Replacement of Left Knee Joint with Synthetic Substitute, Open Approach (ICD-10-PCS; 2019-08-30)
PROC: 0SPD0JZ Removal of Synthetic Substitute from Left Knee Joint, Open Approach (ICD-10-PCS; principal; 2019-08-30 07:45)
DX: T84.84XA Pain due to internal orthopedic prosthetic devices, implants and grafts, initial encounter (principal); X58.XXXA Exposure to other specified factors, initial encounter

== ENCOUNTER → 2020-09-04 17:55 | Outpatient (CLI) | payer BC ==
[2019-08-30 10:11] VITALS: BMI 36.7
[2020-09-04 18:07] LABS: BASOPHILS 0.2 % (0-2); EOSINOPHILS 0.6 % (0-7); HEMATOCRIT 40.9 % (42.0-54.0); HEMOGLOBIN 13.4 g/dL (13.5-17.5); MCH 29.1 pg (26.0-34.0); MCHC 32.8 g/dL (31.0-37.0); MCV 88.7 fL (80.0-100.0); MEAN PLATELET VOLUME 8.9 fL (7.4-10.4); MONOCYTES 7.3 % (2-11); NEUTROPHILS 65.9 % (40-80); RBC 4.61 10x6/uL (4.20-6.10); RDW 14.9 % (11.5-14.5); WBC 7.7 10x3/uL (4.8-10.8)
[2020-09-04 18:24] LABS: PLATELET COUNT 197 10x3/uL (130-400)
[2020-09-04 19:14] LABS: ERYTHROCYTE SEDIMENTATION RATE 8 mm/hr (0-20)
== END | disposition home or self-care (01) ==
LOC: D.LABREF 17:55
PROVIDERS: ATTEND Nurse Practitioner Family
DX: Z96.653 Presence of artificial knee joint, bilateral (principal)

== ENCOUNTER → 2020-09-07 09:24 | Outpatient (CLI) | payer BC ==
[2019-08-30 10:11] VITALS: BMI 36.7
== END | disposition home or self-care (01) ==
LOC: D.NM 09:24
PROVIDERS: ATTEND Nurse Practitioner Family
DX: Z96.653 Presence of artificial knee joint, bilateral (principal)